=== PATIENT | female | born 1955 | race Caucasian/White ===

== ENCOUNTER 2025-08-14 09:54 | Emergency (ER) | payer MEDICARE, OTHER ==
[2025-08-14 10:16] LABS: BASOPHILS ABSOLUTE AUTO 0.04 K/uL (0.00-0.20); BASOPHILS PERCENT AUTO 0.9 % (0.0-2.0); EOSINOPHILS ABSOLUTE AUTO 0.17 K/uL (0.00-0.50); EOSINOPHILS PERCENT AUTO 3.6 % (0.0-5.0); IMMATURE GRAN ABSOLUTE AUTO 0.01 10^3/uL (0.00-0.04); IMMATURE GRAN PERCENT AUTO 0.2 % (0.0-0.4); LYMPHOCYTES ABSOLUTE AUTO 1.20 K/uL (0.50-3.50); LYMPHOCYTES PERCENT AUTO 25.7 % (10.0-50.0); MONOCYTES ABSOLUTE AUTO 0.38 K/uL (0.00-1.00); MONOCYTES PERCENT AUTO 8.1 % (2.0-14.0); NEUTROPHILS ABSOLUTE AUTO 2.87 K/uL (1.40-7.00); NEUTROPHILS PERCENT AUTO 61.5 % (45.0-80.0); PLATELET COUNT,PLT 245 K/uL (150-350); RED BLOOD CELL COUNT 4.68 M/uL (3.77-5.09); RED CELL DISTRIBUTION WIDTH 13.5 % (11.2-14.1); WHITE BLOOD CELL COUNT,WBC 4.7 K/uL (4.0-10.2)
[2025-08-14 10:45] LABS: ALANINE AMINOTRANSFERASE,ALT 37.0 U/L (12-78); ASPARTATE AMNIOTRANSFERASE,AST 20.0 U/L (15-37); BILIRUBIN TOTAL 1.0 mg/dL (0.2-1.0); BLOOD UREA NITROGEN,BUN 13.0 mg/dL (7-18); CARBON DIOXIDE,CO2 25.3 mmol/L (21.0-32.0); CHLORIDE,CL 105.0 mmol/L (98-107); CREATININE 1.0 mg/dL (0.51-1.17); EST CRCL DRUG DOSING (CG) 46.5 mL/min; GLUCOSE RANDOM 109.0 mg/dL (70-99); PHOSPHORUS 3.6 mg/dL (2.6-4.7); POTASSIUM,K 4.6 mmol/L (3.5-5.1); PROTEIN TOTAL,TP 7.5 g/dL (6.4-8.2); SODIUM,NA 140.0 mmol/L (136-145)
[2025-08-14 10:46] LABS: INR 1.1 (0.9-1.1); PTT,PARTIAL THROMBOPLSTIN TIME 26.8 SEC (23.8-34.4)
[2025-08-14 10:49] LABS: ESTIMATED GFR 61.0 mL/min (>=60)
[2025-08-14 11:31] VITALS: BP 135/94; PULSE 74
[2025-08-14 13:44] LABS: T4 FREE 0.94 ng/dL (0.76-1.46)
== END 2025-08-14 11:11 | disposition home or self-care (01) ==
LOC: LL.ED 09:54
DX: I49.3 Ventricular premature depolarization (principal); E78.00 Pure hypercholesterolemia, unspecified; Z88.2 Allergy status to sulfonamides; Z79.899 Other long term (current) drug therapy
CPT/HCPCS: 36415; 71045; 80053; 83735; 84100; 84439; 84484; 85025; 85610; 85730; 93005; 93010; 99284; 99285